=== PATIENT | female | born 1945 | race Caucasian/White ===

== ENCOUNTER 2017-03-27 00:33 | Inpatient (IN) | payer OTHER, BC ==
[~2017-03-27] VITALS: Ht 157.5 cm; Wt 69.0 kg
[~2017-03-27 00:33] MED LIST: ADVAIR 250-501 EACH IH; ADVAIR 250/501 DISK IH; ADVAIR HFA120 INHALA IH; ALPRAZOLAM0.25 M2 PO; AMBIEN CR12.5 MG PO; AMLODIPINE BESYL5 MG PO; ASPIR-LOW81 M1 PO; ASPIRIN325 MG PO; Advair HFA 115/21 IH; BP MED PO; CALTRATE 6001 TABLE1 PO; CALTRATE 6001 TABLET PO; CIPRO250 MG PO; CIPRO500 MG PO; CIPROFLOXACIN500 M1 PO; DIOVAN160 MG PO; ECOTRIN325 MG PO; Ecotrin PO; FISH OIL 1,0001 EA10 PO; FISH OIL 1,2001 EAC4 PO; FISH OIL 1,4001 EACH PO; FLEXERIL10 MG PO; Hydrodiuril,Oretic,E PO; ISORDIL,SORBITR20 MG PO; LEXAPRO10 MG PO; LOPRESSOR25 MG PO; LOSARTAN POTAS100 MG PO; Levaquin PO; METOPROLOL SUCC25 MG PO; METRO CREAM 0.745 GM TP; NEXIUM20 MG PO; NORVASC5 MG PO; Norvasc PO; OSTEO BI-FLEX1 EAC1 PO; OSTEO BI-FLEX1 EAC2 PO; Oscal 500 w/Vitamin PO; PERCOCET 5/31 TABLET PO; PRAVASTATIN SOD40 MG PO; PRAVASTATIN SOD80 MG PO; PREDNISONE20 MG PO; PYRIDIUM200 MG PO; SIMVASTATIN20 MG PO; SPIRIVA1 INHALATI IH; Toprol XL PO; VENTOLIN HFA18 GM IH; ZOCOR10 MG PO; ZOFRAN ODT4 MG PO; ZOLPIDEM TARTRA10 MG PO; Zocor PO
[2017-03-27 01:33] LABS: EOSINOPHIL COUNT 0.2 K/uL (0-0.3); HEMATOCRIT 41.8 % (36.0-46.0); IMMATURE GRANULOCYTE (%) 0.4 % (0.0-0.7); INSTRUMENT ABS NEUTROPHIL CT 6.2 K/uL; LYMPHOCYTE COUNT 0.3 K/uL (1.0-2.8); MCH 31.6 PG (29.0-34.0); MCHC 34.4 G/DL (30.0-36.0); MCV 91.7 FL (83-99); MEAN PLAT.VOLUME 10.2 uM^3 (9.5-12.4); MONOCYTE COUNT 0.1 K/uL (0-0.8); NEUTROPHIL (%) 89.9 % (45-76); NEUTROPHIL COUNT 6.2 K/uL (1.8-6.4); PLATELET COUNT 224 K/uL (156-360); RBC DIS.WIDTH-CV 12.6 % (11.8-14.6); RED BLOOD COUNT 4.56 M/uL (3.80-5.20); WHITE BLOOD COUNT 6.9 K/uL (4.1-10.2)
[2017-03-27 01:43] LABS: CHLORIDE 100 mEq/L (99-109); POTASSIUM 2.5 mEq/L (3.7-5.4); SODIUM 139 mEq/L (136-147)
[2017-03-27 01:46] LABS: GLUCOSE 114 mg/dL (70-99)
[2017-03-27 01:47] LABS: ANION GAP 14 MEQ/L (2-14)
[2017-03-27 01:48] LABS: TOTAL BILIRUBIN 0.8 mg/dL (0.0-1.0)
[2017-03-27 01:49] LABS: ALKALINE PHOSPHATASE 81 IU/L (3-129); GFR ESTIMATE (CALCULATED) > 59 mL/min/
[2017-03-27 01:50] LABS: UREA NITROGEN (BUN) 16 mg/dL (9-23)
[2017-03-27 01:55] LABS: TROP-I INTERPRETATION NEGATIVE; TROPONIN-I 0.03 ng/mL (0.0-0.30)
[2017-03-27 03:05] LABS: INFLUENZA A VIRAL ANTIGEN NEGATIVE; INFLUENZA B VIRAL ANTIGEN NEGATIVE
[2017-03-27 03:18] LABS: ADD MIUA? YES; BILIRUBIN NEGATIVE; BLOOD MODERATE; COLOR AMBER ((YELLOW)); GLUCOSE (STRIP) NEGATIVE; KETONES NEGATIVE; LEUKOCYTES MODERATE; NITRITE POSITIVE; PROTEIN (STRIP) NEGATIVE; SPECIFIC GRAVITY 1.011 (1.000-1.030)
[2017-03-27 04:03] LABS: BACTERIA 1+ /HPF; EPITHELIAL CELLS RARE /HPF; MUCUS NONE SEEN /LPF; RED BLOOD CELLS 0-5 /HPF (0-5); UCUL ADDED? YES; WHITE BLOOD CELLS 30-40 /HPF (0-5)
[2017-03-27 04:04] LABS: CASTS NONE SEEN /LPF; CRYSTALS NONE SEEN
[2017-03-27 07:52] VITALS: BP 117/56
[2017-03-27] MEDS ORDERED: TOPROL XL100 MG PO (09:09)
[2017-03-27] MEDS ORDERED: ASPIRIN81 M2 PO (09:10)
[2017-03-27] MEDS ORDERED: NEXIUM20 MG PO (09:13)
[2017-03-27] MEDS ORDERED: CHLORTHALIDONE25 MG PO (09:14)
[2017-03-27] MEDS ORDERED: SPIRIVA18 MCG IH (09:14)
[2017-03-27 11:45] VITALS: BP 117/65
[2017-03-27 15:06] VITALS: BP 121/69
[2017-03-27 20:17] VITALS: BP 133/67
[2017-03-27 21:02] LABS: EOSINOPHIL (%) 0 % (0-5); HEMATOCRIT 39.6 % (36.0-46.0); IMMATURE GRANULOCYTE (%) 0.5 % (0.0-0.7); INSTRUMENT ABS NEUTROPHIL CT 5.2 K/uL; LYMPHOCYTE COUNT 0.3 K/uL (1.0-2.8); MCH 31.8 PG (29.0-34.0); MCHC 33.6 G/DL (30.0-36.0); MCV 94.7 FL (83-99); MEAN PLAT.VOLUME 10.2 uM^3 (9.5-12.4); MONOCYTE (%) 1.6 % (3-12); MONOCYTE COUNT 0.1 K/uL (0-0.8); NEUTROPHIL (%) 93.2 % (45-76); NEUTROPHIL COUNT 5.2 K/uL (1.8-6.4); PLATELET COUNT 173 K/uL (156-360); RBC DIS.WIDTH-CV 13.3 % (11.8-14.6); RBC DIS.WIDTH-SD 46.5 % (39-53); RED BLOOD COUNT 4.18 M/uL (3.80-5.20); WHITE BLOOD COUNT 5.5 K/uL (4.1-10.2)
[2017-03-27 21:12] LABS: ANION GAP 12 MEQ/L (2-14); CHLORIDE 108 MEQ/L (99-109); POTASSIUM 3.8 MEQ/L (3.7-5.4); SAMPLE HEMOLYSIS CHECK 1; SAMPLE ICTERIC CHECK 0; SAMPLE LIPEMIA CHECK 0; SODIUM 138 MEQ/L (136-147); TOTAL BILIRUBIN 0.7 MG/DL (0.0-1.0)
[2017-03-27 21:17] LABS: ALKALINE PHOSPHATASE 56 IU/L (3-129); GFR ESTIMATE (CALCULATED) > 59 mL/min/; GLUCOSE 110 mg/dL (70-99); UREA NITROGEN (BUN) 12 mg/dL (9-23)
[2017-03-27 23:54] VITALS: BP 132/65
[2017-03-28 04:00] VITALS: BP 134/69
[2017-03-28 07:13] LABS: HEMATOCRIT 35.7 % (36.0-46.0); MCH 33.2 PG (29.0-34.0); MCHC 35.3 G/DL (30.0-36.0); MCV 94.2 FL (83-99); MEAN PLAT.VOLUME 10.5 uM^3 (9.5-12.4); PLATELET COUNT 146 K/uL (156-360); RBC DIS.WIDTH-CV 13.5 % (11.8-14.6); RBC DIS.WIDTH-SD 46.5 % (39-53); RED BLOOD COUNT 3.79 M/uL (3.80-5.20); WHITE BLOOD COUNT 3.9 K/uL (4.1-10.2)
[2017-03-28 07:40] LABS: EOSINOPHIL (%) 1.3 % (0-5); EOSINOPHIL COUNT 0.1 K/uL (0-0.3); IMMATURE GRANULOCYTE (%) 0.3 % (0.0-0.7); INSTRUMENT ABS NEUTROPHIL CT 3.3 K/uL; LYMPHOCYTE COUNT 0.3 K/uL (1.0-2.8); MONOCYTE (%) 7.4 % (3-12); MONOCYTE COUNT 0.3 K/uL (0-0.8); NEUTROPHIL (%) 84.1 % (45-76); NEUTROPHIL COUNT 3.3 K/uL (1.8-6.4)
[2017-03-28 07:42] LABS: ANION GAP 9 MEQ/L (2-14); CHLORIDE 105 MEQ/L (99-109); GFR ESTIMATE (CALCULATED) > 59 mL/min/; GLUCOSE 116 mg/dL (70-99); POTASSIUM 3.4 MEQ/L (3.7-5.4); SAMPLE HEMOLYSIS CHECK 0; SAMPLE ICTERIC CHECK 0; SAMPLE LIPEMIA CHECK 0; SODIUM 137 MEQ/L (136-147); UREA NITROGEN (BUN) 12 mg/dL (9-23)
[2017-03-28 07:45] VITALS: BP 121/60
[2017-03-28 17:23] VITALS: BP 140/76
[2017-03-28 19:49] VITALS: BP 146/82
[2017-03-28 23:45] VITALS: BP 119/67
[2017-03-29 04:26] VITALS: BP 131/65
[2017-03-29 08:00] VITALS: BP 146/78
[2017-03-29 08:37] LABS: ANION GAP 12 MEQ/L (2-14); CHLORIDE 103 MEQ/L (99-109); GFR ESTIMATE (CALCULATED) > 59 mL/min/; GLUCOSE 134 mg/dL (70-99); POTASSIUM 3.4 MEQ/L (3.7-5.4); SAMPLE HEMOLYSIS CHECK 0; SAMPLE ICTERIC CHECK 0; SAMPLE LIPEMIA CHECK 0; SODIUM 136 MEQ/L (136-147); UREA NITROGEN (BUN) 12 mg/dL (9-23)
[2017-03-29 11:23] VITALS: BP 129/82
[2017-03-29 15:04] VITALS: BP 138/78
[2017-03-29 20:02] VITALS: BP 144/71
[2017-03-29 23:37] VITALS: BP 137/67
[2017-03-30 03:16] VITALS: BP 148/65
[2017-03-30 08:16] VITALS: BP 150/74
[2017-03-30 11:40] VITALS: BP 123/76
== END 2017-03-30 13:46 | disposition home or self-care (01) | DRG 690 ==
LOC: EME 00:33 → EDOF 04:11 → ENRESERV 04:15 → 3EAST 05:56
PROVIDERS: Emergency Medicine; Hospitalist; Internal Medicine
DX: N39.0 Urinary tract infection, site not specified (principal); J44.9 Chronic obstructive pulmonary disease, unspecified; R11.2 Nausea with vomiting, unspecified; E87.6 Hypokalemia; E78.5 Hyperlipidemia, unspecified; I10 Essential (primary) hypertension; I25.10 Atherosclerotic heart disease of native coronary artery without angina pectoris; K21.9 Gastro-esophageal reflux disease without esophagitis; Z87.891 Personal history of nicotine dependence; Z99.81 Dependence on supplemental oxygen; I25.2 Old myocardial infarction
CPT/HCPCS: 71010; 78582; 80048; 80053; 81003; 83605; 84132 91; 84484; 85025; 85025 91; 85379; 87040; 87077; 87086; 87186; 87502; 87801; 93005; 94640; 94640 76; 94799; 99202; 99281; 99285; A9540; A9567; J0696; J1644; J1956; J7030; J7050

== ENCOUNTER 2017-08-16 16:42 | Inpatient (IN) | payer OTHER, BC ==
[~2017-08-16] VITALS: Ht 157.5 cm; Wt 68.7 kg
[~2017-08-16 16:42] MED LIST changes: +ASPIRIN81 M2 PO; +CHLORTHALIDONE25 MG PO; +SPIRIVA18 MCG IH; +TOPROL XL100 MG PO
[2017-08-16 18:33] LABS: APPEARANCE SL.HAZY ((CLEAR)); BILIRUBIN NEGATIVE; BLOOD LARGE; COLOR AMBER ((YELLOW)); GLUCOSE (STRIP) NEGATIVE; KETONES NEGATIVE; LEUKOCYTES MODERATE; NITRITE POSITIVE; PROTEIN (STRIP) 30; SPECIFIC GRAVITY 1.011 (1.000-1.030)
[2017-08-16 18:49] LABS: AMORPHOUS URATES CRYSTALS FEW; BACTERIA RARE /HPF; EPITHELIAL CELLS 1+ /HPF; MUCUS NONE SEEN /LPF; RED BLOOD CELLS 30-40 /HPF (0-5); UCUL ADDED? YES; WHITE BLOOD CELLS 15-20 /HPF (0-5)
[2017-08-16 18:53] LABS: HEMATOCRIT 41.1 % (36.0-46.0); HEMOGLOBIN 13.8 G/DL (11.9-15.5); MCH 30.7 PG (29.0-34.0); MCHC 33.6 G/DL (30.0-36.0); MCV 91.3 FL (83-99); PLATELET COUNT 252 K/uL (156-360); RBC DIS.WIDTH-CV 13.4 % (11.8-14.6); RBC DIS.WIDTH-SD 45.3 % (39-53); WHITE BLOOD COUNT 6.5 K/uL (4.1-10.2)
[2017-08-16 19:00] LABS: ALBUMIN 3.7 g/dL (3.2-4.8)
[2017-08-16 19:01] LABS: CHLORIDE 104 mEq/L (99-109); SODIUM 139 mEq/L (136-147)
[2017-08-16 19:03] LABS: GLUCOSE 84 mg/dL (70-99); TOTAL PROTEIN 7.7 g/dL (6.4-8.3)
[2017-08-16 19:05] LABS: TOTAL BILIRUBIN 0.7 mg/dL (0.0-1.0)
[2017-08-16 19:06] LABS: ALKALINE PHOSPHATASE 83 IU/L (3-129)
[2017-08-16 19:07] LABS: CREATININE 1.1 mg/dL (0.6-1.3); GFR ESTIMATE (CALCULATED) 52 mL/min/
[2017-08-16 19:08] LABS: AST (GOT) 72 IU/L (2-34); UREA NITROGEN (BUN) 21 mg/dL (9-23)
[2017-08-16 19:09] LABS: ALT (GPT) 43 IU/L (3-49)
[2017-08-16] MEDS ORDERED: KEFLEX500 MG PO (19:23)
[2017-08-16] MEDS ORDERED: ZOFRAN ODT4 MG PO (19:26)
[2017-08-16] MEDS ORDERED: K-DUR20 MEQ PO (22:02)
[2017-08-17 10:07] LABS: CHLORIDE 106 mEq/L (99-109); POTASSIUM 3.3 mEq/L (3.7-5.4); SODIUM 139 mEq/L (136-147)
[2017-08-17 10:09] LABS: GLUCOSE 182 mg/dL (70-99)
[2017-08-17 10:13] LABS: CREATININE 0.9 mg/dL (0.6-1.3); GFR ESTIMATE (CALCULATED) > 59 mL/min/
[2017-08-17 10:14] LABS: UREA NITROGEN (BUN) 21 mg/dL (9-23)
[2017-08-17 13:09] LABS: TROP-I INTERPRETATION NEGATIVE; TROPONIN-I 0.01 ng/mL (0.0-0.30)
[2017-08-17 15:28] VITALS: BP 157/70
[2017-08-17 19:12] VITALS: BP 161/76
[2017-08-17] MEDS ORDERED: ESCITALOPRAM OX10 MG PO (21:21)
[2017-08-17 21:25] LABS: TROP-I INTERPRETATION NEGATIVE; TROPONIN-I 0.02 ng/mL (0.0-0.30)
[2017-08-17 22:53] VITALS: BP 158/72
[2017-08-18] VITALS (7 sets, daily range): BP systolic 143–178; BP diastolic 68–98
[2017-08-18 05:55] LABS: HEMATOCRIT 32.5 % (36.0-46.0); MCH 30.6 PG (29.0-34.0); MCHC 33.8 G/DL (30.0-36.0); MCV 90.3 FL (83-99); PLATELET COUNT 232 K/uL (156-360); RBC DIS.WIDTH-CV 13.8 % (11.8-14.6); RBC DIS.WIDTH-SD 46.1 % (39-53)
[2017-08-18 06:13] LABS: CHLORIDE 105 MEQ/L (99-109); CREATININE 0.7 MG/DL (0.6-1.3); GFR ESTIMATE (CALCULATED) > 59 mL/min/; GLUCOSE 156 mg/dL (70-99); POTASSIUM 3.5 MEQ/L (3.7-5.4); SODIUM 142 MEQ/L (136-147); UREA NITROGEN (BUN) 15 mg/dL (9-23)
[2017-08-18 16:07] LABS: TROP-I INTERPRETATION NEGATIVE; TROPONIN-I 0.06 ng/mL (0.0-0.30)
[2017-08-19] VITALS (7 sets, daily range): BP systolic 109–177; BP diastolic 58–77
[2017-08-19 06:59] LABS: BASOPHIL (%) 0 % (0-1); EOSINOPHIL (%) 0 % (0-5); HEMATOCRIT 32.8 % (36.0-46.0); HEMOGLOBIN 10.9 G/DL (11.9-15.5); IMMATURE GRANULOCYTE (%) 0.5 % (0.0-0.7); LYMPHOCYTE (%) 8.2 % (15-42); LYMPHOCYTE COUNT 0.5 K/uL (1.0-2.8); MCH 30.5 PG (29.0-34.0); MCHC 33.2 G/DL (30.0-36.0); MCV 91.9 FL (83-99); MONOCYTE (%) 15.4 % (3-12); NEUTROPHIL (%) 75.9 % (45-76); NEUTROPHIL COUNT 4.8 K/uL (1.8-6.4); PLATELET COUNT 217 K/uL (156-360); RBC DIS.WIDTH-SD 47.7 % (39-53); RED BLOOD COUNT 3.57 M/uL (3.80-5.20); WHITE BLOOD COUNT 6.3 K/uL (4.1-10.2)
[2017-08-19 07:16] LABS: CHLORIDE 102 MEQ/L (99-109); CREATININE 0.7 MG/DL (0.6-1.3); GFR ESTIMATE (CALCULATED) > 59 mL/min/; GLUCOSE 133 mg/dL (70-99); POTASSIUM 3.6 MEQ/L (3.7-5.4); SODIUM 140 MEQ/L (136-147); UREA NITROGEN (BUN) 17 mg/dL (9-23)
[2017-08-20] VITALS (7 sets, daily range): BP systolic 125–172; BP diastolic 67–78
[2017-08-20 09:12] LABS: HEMATOCRIT 39.5 % (36.0-46.0); MCH 31.1 PG (29.0-34.0); MCHC 33.7 G/DL (30.0-36.0); MCV 92.3 FL (83-99); PLATELET COUNT 273 K/uL (156-360); RBC DIS.WIDTH-CV 14.2 % (11.8-14.6); RBC DIS.WIDTH-SD 47.8 % (39-53); RED BLOOD COUNT 4.28 M/uL (3.80-5.20); WHITE BLOOD COUNT 7.9 K/uL (4.1-10.2)
[2017-08-20 09:14] LABS: HEMOGLOBIN 13.3 G/DL (11.9-15.5)
[2017-08-20 09:21] LABS: CHLORIDE 101 MEQ/L (99-109); CREATININE 0.8 MG/DL (0.6-1.3); GFR ESTIMATE (CALCULATED) > 59 mL/min/; GLUCOSE 109 mg/dL (70-99); SODIUM 140 MEQ/L (136-147); UREA NITROGEN (BUN) 25 mg/dL (9-23)
[2017-08-20 09:26] LABS: POTASSIUM 2.8 MEQ/L (3.7-5.4)
[2017-08-20 12:17] LABS: MAGNESIUM 1.7 mg/dl (1.3-2.7); PHOSPHORUS 2.9 mg/dL (2.5-4.9)
[2017-08-21 04:01] VITALS: BP 129/66
[2017-08-21 07:00] VITALS: BP 117/68
[2017-08-21 09:45] LABS: CHLORIDE 101 MEQ/L (99-109); CREATININE 0.8 MG/DL (0.6-1.3); GFR ESTIMATE (CALCULATED) > 59 mL/min/; GLUCOSE 96 mg/dL (70-99); POTASSIUM 4.1 MEQ/L (3.7-5.4); SODIUM 134 MEQ/L (136-147); UREA NITROGEN (BUN) 20 mg/dL (9-23)
[2017-08-21] MEDS ORDERED: METOPROLOL SUCC25 MG PO (09:52)
[2017-08-21] MEDS ORDERED: NIFEDIPINE20 MG PO (09:52)
[2017-08-21 11:20] VITALS: BP 122/71
== END 2017-08-21 13:32 | disposition home or self-care (01) | DRG 871 ==
LOC: EME 16:42 → 5EAST 08-17 00:58 → EDOF 08-17 00:58 → ENRESERV 08-17 01:00 → 5EAST 08-17 13:47 → ENPENDDIS 08-21 → 5EAST 08-21 13:32
PROVIDERS: Internal Medicine; Physician Assistant Medical
DX: A41.9 Sepsis, unspecified organism (principal); N30.00 Acute cystitis without hematuria; J96.01 Acute respiratory failure with hypoxia; J44.1 Chronic obstructive pulmonary disease with (acute) exacerbation; E87.6 Hypokalemia; I10 Essential (primary) hypertension; K52.9 Noninfective gastroenteritis and colitis, unspecified; E87.2 Acidosis; E78.5 Hyperlipidemia, unspecified; I25.10 Atherosclerotic heart disease of native coronary artery without angina pectoris; M43.16 Spondylolisthesis, lumbar region; K21.9 Gastro-esophageal reflux disease without esophagitis; I70.0 Atherosclerosis of aorta; Z79.82 Long term (current) use of aspirin; I25.2 Old myocardial infarction; Z79.899 Other long term (current) drug therapy; Z90.49 Acquired absence of other specified parts of digestive tract; Z87.891 Personal history of nicotine dependence; Z87.440 Personal history of urinary (tract) infections; Z83.3 Family history of diabetes mellitus; Z82.49 Family history of ischemic heart disease and other diseases of the circulatory system
CPT/HCPCS: 71046; 74177; 80048; 80053; 81003; 82948; 83605; 83735; 84100; 84132 91; 84484; 85025; 85027; 87040; 87086; 87493; 93005; 94640; 94640 76; 94760; 94799; 99202; J0696; J1644; J1885; J2060; J2270; J2405; J2930; J3480; J7030; J7120; J7512